=== PATIENT | male | born 1995 | race Caucasian/White ===

== ENCOUNTER 2018-03-18 22:22 | Emergency (ER) | payer BC, OTHER ==
[2018-03-18] MEDS ORDERED: Albuterol/Ipratropium 3.0-0.5 MG/3 ML Neb Soln NEB ONE (23:16)
--- NOTE | 2018-03-18 23:47 | EDM.PDOC ---
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 on awakening at 4 AM, been sob all day, no f/c/d, occasional cough no rhinorrhea smoked 3-4 cigs/d in past, no THC lives with fat her who is not ill here with his mother has had chronic sob x 2y, intermittent, no prior dx of asthma altho does have a mild wheeze today will do a limited w/u as there is no previous w/u hx and PE c/w mld intermittent asthma right side chest Pain Score (Numeric/FACES): 2 - Related Data Allergies Allergy/AdvReac Type Severity Reaction Status Date / Time No Known Allergies Allergy Verified 03/18/18 23:12 Home Meds: Home Meds Albuterol [Ventolin HFA] 2 puff INH Q4H PRN #1 inhaler 03/19/18 [Rx] predniSONE 20 mg PO DAILY #5 tab 03/19/18 [Rx] Past Medical History - Past Health History Medical/Surgical History: Denies Medical/Surgical History Social & Family History - Family History Family Medical History: Noncontributory - Tobacco Use Smoking Status *Q: Former Smoker Used Tobacco, but Quit: Yes Month/Year Tobacco Last Used: 12 - Caffeine Use Caffeine Use: Reports: Coffee - Recreational Drug Use Recreational Drug Use: No ED ROS GENERAL - Review of Systems Review Of Systems: Unable To Obtain Constitutional: Reports: No Symptoms HEENT: Reports: No Symptoms Respiratory: Reports: Shortness of Breath, Cough Cardiovascular: Reports: No Symptoms Endocrine: Reports: No Symptoms GI/Abdominal: Reports: No Symptoms : Reports: No Symptoms Musculoskeletal: Reports: No Symptoms Skin: Reports: No Symptoms Neurological: Reports: No Symptoms Psychiatric: Reports: No Symptoms Hematologic/Lymphatic: Reports: No Symptoms Immunologic: Reports: No Symptoms ED EXAM, GENERAL - Physical Exam Exam: See Below Exam Limited By: No Limitations General Appearance: Alert, WD/WN, No Apparent Distress Nose: Normal Inspection Throat/Mouth: Normal Inspection, Normal Lips, Normal Teeth, Normal Gums, Normal Oropharynx, Normal Voice, No Airway Compromise Head: Atraumatic, Normocephalic Neck: Normal Inspection, Supple, Non-Tender, Full Range of Motion. No: Lymphadenopathy (R), Lymphadenopathy (L) Respiratory/Chest: No Respiratory Distress, No Accessory Muscle Use, Chest Non- Tender, Other (mild exp wheeze with inc'd exp phase on forced expiration, no rales) Cardiovascular: Regular Rate, Rhythm, No Edema, No Murmur GI/Abdominal: Soft, Non-Tender, No Distention Back Exam: Normal Inspection, Full Range of Motion, NT Extremities: Normal Inspection, Normal Range of Motion, Non-Tender, No Pedal Edema Neurological: Alert, Oriented, CN II-XII Intact, Normal Cognition, No Motor/ Sensory Deficits Psychiatric: Normal Affect, Normal Mood Skin Exam: Warm Lymphatic: No Adenopathy Course - Vital Signs Last Recorded V/S: Last Vital Signs Temp 36.7 C 03/18/18 22:22 Pulse 58 L 03/18/18 22:22 Resp 17 03/18/18 22:22 BP 114/70 03/18/18 22:22 Pulse Ox 100 03/18/18 22:22 - Orders/Labs/Meds Orders: Active Orders 24 hr Category Date Time Status RT Aerosol Therapy [RC] ASDIRECTED Care 03/18/18 23:16 Active Chest 2V [CR] Stat Exams 03/18/18 23:16 Taken Labs: Laboratory Tests 03/18/18 03/18/18 03/18/18 Range/Units 23:30 23:30 23:30 WBC 10.1 (4.5-12.0) X10-3/uL RBC 4.93 (4.30-5.75) x10(6)uL Hgb 14.8 (11.5-15.5) g/dL Hct 43.8 (30.0-51.3) % MCV 88.8 (80-96) fL MCH 30.1 (27.7-33.6) pg MCHC 33.9 (32.2-35.4) g/dL RDW 13.1 (11.5-15.5) % Plt Count 270 (125-369) X10(3)uL MPV 8.4 (7.4-10.4) fL Neut % (Auto) 72.0 (46-82) % Lymph % (Auto) 22.4 (13-37) % [place] % (Auto) 3.9 L (4-12) % Eos % (Auto) 1 (1.0-5.0) % Baso % (Auto) 1 (0-2) % Neut # (Auto) 7.2 (1.6-8.3) # Lymph # (Auto) 2.3 (0.6-5.0) # [place] # (Auto) 0.4 (0.0-1.3) # Eos # (Auto) 0.1 (0.0-0.8) # Baso # (Auto) 0.1 (0.0-0.2) # D-Dimer, Quantitative 0.22 (0.0-0.59) mg/LFEU Troponin I < 0.017 L (<0.017-0.056) ng/mL Meds: Medications Discontinued Medications Generic Name Dose Route Start Last Admin Trade Name Freq PRN Reason Stop Dose Admin Albuterol/Ipratropium 3 ml 03/18/18 23:16 03/18/18 23:29 Duoneb 3.0-0.5 Mg/3 Ml NEB 03/18/18 23:17 3 ml ONETIME ONE Administration - Re-Assessments/Exams Free Text/Narrative Re-Assessment/Exam: 03/19/18 00:36 CxR, 2v, neg, CBC/trop/d-dimer all neg peak flow 470 before, 500 after Duoneb, however less wheeze, target peak flow is 650 Departure - Departure Time of Disposition: 00:37 Disposition: Home, Self-Care 01 Condition: Good Clinical Impression: Asthma attack - Discharge Information *PRESCRIPTION DRUG MONITORING PROGRAM REVIEWED*: No *COPY OF PRESCRIPTION DRUG MONITORING REPORT IN PATIENT DESTINI: No Prescriptions: Albuterol [Ventolin HFA] 2 puff INH Q4H PRN #1 inhaler PRN Reason: Wheezing predniSONE 20 mg PO DAILY #5 tab Instructions: Asthma, Adult, How to Use a Metered Dose Inhaler Referrals: Dex Pete MD [Primary Care Provider] - Forms: ED Department Discharge Additional Instructions: To reduce inflammation and open the airway, take prednisone 20 mg 2 tabs tomorrow, then 1 tab daily for 3 more days. To relax the muscle and open the airway, use albuterol inhaler 2 puffs every 4 hours as needed. Record your peak flow daily (best of 3 efforts) for the next week. See Dr Pete in 1 week. Take your peak flow records with you. - My Orders Last 24 Hours: My Active Orders 03/18/18 23:16 RT Aerosol Therapy [RC] ASDIRECTED Chest 2V [CR] Stat - Assessment/Plan Last 24 Hours: My Active Orders 03/18/18 23:16 RT Aerosol Therapy [RC] ASDIRECTED Chest 2V [CR] Stat
[2018-03-19] MEDS ORDERED: predniSONE 20 MG Tab PO ONE (00:39)
--- NOTE | 2018-03-19 11:12 | CR ---
INDICATION: Short of breath, mild expiratory wheezes and right sided chest pressure. CHEST TWO VIEWS: Two PA views and a lateral view of the chest were obtained and revealed prominent breast shadows raising question of gynecomastia. This should be correlated clinically. Heart, mediastinum and bony thorax were essentially unremarkable. An active infiltrate or effusion was not identified. Prominent AP diameters, somewhat flattened diaphragm leaves raise question of obstructive airway disease--correlate clinically. An azygos lobe is noted, which is a normal variant. IMPRESSION: 1. No definite acute process--question possibility of obstructive airway disease which could be on an acute basis--correlate clinically. 2. Possible gynecomastia--correlate clinically. MTDD
== END 2018-03-19 00:51 | disposition home or self-care (01) ==
LOC: FB.ED 22:22
DX: J45.909 Unspecified asthma, uncomplicated (principal); Z79.899 Other long term (current) drug therapy; Z87.891 Personal history of nicotine dependence
CPT/HCPCS: 36415; 71046; 84484; 85025; 85379; 94640; 99285; A9270; J7620-GY